=== PATIENT | male | born 1955 | race Caucasian/White ===

== ENCOUNTER 2025-04-25 13:45 | Emergency (ER) | payer MEDICARE, SELFPAY ==
--- NOTE | ~2025-04-25 | CT_ITS ---
CT brain wo con Ordering provider: Nohemi Avery History: 69 years Male with . altered mental status . Comparison: None. Technique: CT of the head without contrast. Radiation reduction technique utilized The dose-length pr oduct was 605.33 mGy-cm. FINDINGS: BRAIN PARENCHYMA AND CSF SPACES: Mild leukoaraiosis and diffuse cortical atrophy. Mild atheromatous d isease. No midline shift, mass effect or hemorrhage. The brain parenchyma and CSF spaces are otherwi se normal. VISUALIZED PARANASAL SINUSES: Well aerated. MASTOIDS: Well aerated. BONES: The bones appear intact. SOFT TISSUES: Visualized nasopharynx is normal. Superficial soft tissues are normal. IMPRESSION: No acute intracranial findings. Reviewed, dictated and finalized at location A.
--- NOTE | ~2025-04-25 | XR_ITS ---
EXAMINATION: XR chest 2V DATE: 04/25/2025 14:55 INDICATION: Altered mental status TECHNIQUE: PA and lateral views of the chest were obtained. COMPARISON: None FINDINGS: Mild cardiac megaly with prominent paracardial fat pad obscuring the apex of the heart, the costophre jackelin angle and anterolateral aspect of the left hemidiaphragm. No focal airspace opacities, pulmonary edema, pleural effusion or pneumothorax. Mild lower thoracic dextroscoliosis with mild spondylosis. IMPRESSION: 1. Cardiomegaly. No other acute cardiopulmonary disease. Reviewed, dictated and finalized at location A.
[2025-04-25 14:19] VITALS: BP 157/86; PULSE 66; RESP 15; TEMP 36.4; O2SAT 100
--- NOTE | 2025-04-25 14:41 | ECG_ITS ---
Test Date: 2025-04-25 17:26:15 Measurements Intervals Campus Rate: 62 P: 9 MT: 166 QRS: -13 QRSD: 76 T: -12 QT: 382 QTc: 388 Interpretive Statements SINUS RHYTHM LOW QRS VOLTAGE IN PRECORDIAL LEADS POSSIBLE ANTERIOR MYOCARDIAL INFARCTION , PROBABLY OLD BORDERLINE ST-T WAVE ABNORMALITY- ANT/INF LEADS BASELINE ARTIFACT- I, II, III, AVR, AVL, AVF, V1-V6 ABNORMAL ECG Electronically Signed On 04-25-2025 19:03:40 CDT by Caleb Miranda D.O.
--- NOTE | 2025-04-25 14:42 | ED.AMS ---
HPI - Altered Mental Status General Chief Complaint: Altered Mental Status Stated Complaint: new change in mental status 24 hours ago Time Seen by Provider: 04/25/25 14:25 Focused HPI: Patient is a 69-year-old male who reports to the ER with a new onset altered mental status. He reports that he was sent to the ER because they had concerns that I was confused. Patient is A&O x4 time of examination. His family member is with him and reports he started on Lyrica yesterday, which was prescribed at the pain clinic. Patient endorses chronic right hip pain and right [place] pain. His family member also reports he sees a neurologist and was put on Zyprexa 4 months ago. Patient moved into [facility] assisted living facility approximately 2 months ago. The nursing facility reports he refused lunch yesterday, which was abnormal for patient. Patient's family member does not know his last known well. GENERAL: Well-appearing, well-nourished, and in no acute distress. HEAD: Normocephalic, atraumatic. CHEST: Clear to auscultation. ?No respiratory distress. HEART: Regular rate and rhythm.? NEURO: ?Alert and oriented x3. Patient screened in triage and initial orders placed.? ?Additional care and disposition to be based upon?diagnostic testing and treatment. Related Data Allergies Allergy/AdvReac Type Severity Reaction Status Date / Time Penicillins Allergy Unknown Rash Verified 04/25/25 14:25 Review of Systems Review of Systems: All systems reviewed & are unremarkable except as noted in HPI and below PMFSH Social History Social History Alcohol intake: current Course Vital Signs Vital signs: Vital Signs Temperature 36.4 C 04/25/25 14:19 Pulse Rate 66 04/25/25 14:19 Respiratory Rate 15 04/25/25 14:19 Blood Pressure 157/86 H 04/25/25 14:19 Pulse Oximetry 100 04/25/25 14:19 Oxygen Delivery Room Air 04/25/25 14:19 Temperature 36.4 C 04/25/25 14:19 Pulse Rate 66 04/25/25 14:19 Respiratory Rate 15 04/25/25 14:19 Blood Pressure 157/86 H 04/25/25 14:19 Pulse Oximetry 100 04/25/25 14:19 Oxygen Delivery Room Air 04/25/25 14:19 MDM - Altered Mental Status Lab Data 04/25/25 17:18 04/25/25 17:18 Labs: Lab Results 04/25/25 04/25/25 Range/Units 17:18 17:34 WBC 13.0 H (4.5-10.0) K/mm3 RBC 4.47 L (4.6-6.20) M/mm3 Hgb 13.7 L (14.0-18.0) g/dL Hct 41.8 L (42.0-52.0) % MCV 93.5 (80-100) fl MCH 30.6 (26-34) pg MCHC 32.8 (32-36) g/dl RDW 12.4 (11.5-14.5) % Plt Count 163 (150-375) k/mm3 MPV 9.3 (7.4-10.4) fl Immature Gran % (Auto) Not Reportable Neut % (Auto) Not Reportable Lymph % (Auto) Not Reportable [place] % (Auto) Not Reportable Eos % (Auto) Not Reportable Baso % (Auto) Not Reportable Lymph # (Auto) Not Reportable [place] # (Auto) Not Reportable Eos # (Auto) Not Reportable Baso # (Auto) Not Reportable Abs Immat Gran (auto) Not Reportable Absolute Neuts (auto) Not Reportable Absolute Nucleated RBC Not Reportable Total Counted 100 Neutrophils % (Manual) 36 L (46-73) % Band Neutrophils % 0 (0-6) % Lymphocytes % (Manual) 61.0 H (18-44) % Monocytes % (Manual) 2 L (3-9) % Basophils % (Manual) 1 (0-1) % Nucleated RBC % Not Reportable Abs Neuts (Manual) 4.68 (1.3-6.7) K/mm3 Abs Lymphs (Manual) 7.93 H (1.1-4.5) K/mm3 Abs Monocytes (Manual) 0.26 (0.1-0.90) K/mm3 Abs Basophils (Manual) 0.13 H (0.0-0.1) K/mm3 Platelet Estimate Adequate (Adequate) Schistocytes None seen PT 12.7 (11.1-14.7) Seconds INR 1.0 APTT 27.1 (22.3-36.8) Seconds Sodium 141 (137-145) mmol/L Potassium 4.5 (3.4-5.0) mmol/L Chloride 104 (98-107) mmol/L Carbon Dioxide 26 (22-30) mmol/L Anion Gap 11 (4-12) mmol/L BUN 23 H (9-20) mg/dL Creatinine 1.20 (0.7-1.3) mg/dL Estim Creat Clear Calc 52 ml/min Estimated GFR 60 (59 - ) Glucose 92 (65-110) mg/dL POC Capillary Glucose 88 (65-105) mg/dl Calcium 9.8 (8.4-10.2) mg/dL Total Bilirubin 0.5 (0.2-1.3) mg/dL AST 27 (17-59) U/L ALT 15 (6-50) U/L Alkaline Phosphatase 57 (38-126) U/L Total Creatine Kinase 55 (55-170) U/L Troponin I < 0.012 (0.000-0.034) ng/mL Total Protein 7.4 (6.3-8.2) g/dL Albumin 4.5 (3.5-5.1) g/dL TSH < 0.015 L (0.465-4.680) uIU/mL Urine Color Yellow (Yellow) Urine Appearance Clear (Clear) Urine pH 5.5 (5.0-9.0) Ur Specific [place] 1.017 (1.001-1.035) Urine Protein Negative (Negative) mg/dL Urine Glucose (UA) Negative (Negative) mg/dL Urine Ketones Negative (Negative) mg/dL Ur Blood (Man) Negative (Negative) Urine Nitrate Negative (Negative) Urine Bilirubin Negative (Negative) Urine Urobilinogen 0.2 (<2.0) mg/dL Leukocyte Esterase Rfl Negative (Negative) SEBASTIAN/UL Discharge Plan Discharge Clinical Impression: Altered mental status Patient Disposition: Elopement After Seen by Prov Patient Language: Hungarian Follow-up/Referrals: PHYSICIAN NOT ON STAFF,NONSTAFF [Primary Care Provider] -
[2025-04-25 17:37] LABS: Glucose Point of Care 88 mg/dl (65-105)
[2025-04-25 17:39] LABS: Hematocrit 41.8 % (42.0-52.0); Hemoglobin 13.7 g/dL (14.0-18.0); Mean Corpuscular HGB Conc 32.8 g/dl (32-36); Mean Corpuscular Hemoglobin 30.6 pg (26-34); Mean Corpuscular Volume 93.5 fl (80-100); Mean Platelet Volume 9.3 fl (7.4-10.4); Platelet Count Result 163 k/mm3 (150-375); Red Blood Count 4.47 M/mm3 (4.6-6.20); Red Cell Distribution Width 12.4 % (11.5-14.5)
[2025-04-25 17:43] LABS: Add Urine Microscopic? NO; Appearance Urine Clear (Clear); Bilirubin Urine Negative (Negative); Blood Urine Negative (Negative); Color Urine Yellow (Yellow); Glucose Urine UA Negative (Negative); Ketones Urine Negative (Negative); Leukocyte Esterase Ur Negative LEU/UL (Negative); Nitrate Urine Negative (Negative); Protein Urine Negative (Negative); Specific Grav Ur 1.017 (1.001-1.035); Urobilinogen Urine 0.2 mg/dL (<2.0); pH Urine 5.5 (5.0-9.0)
[2025-04-25 17:50] LABS: Alanine Aminotransferase 15 U/L (6-50); Albumin Level 4.5 g/dL (3.5-5.1); Alkaline Phosphatase 57 U/L (38-126); Anion Gap 11 mmol/L (4-12); Aspartate Amino Transferase 27 U/L (17-59); Bilirubin,Total 0.5 mg/dL (0.2-1.3); Blood Urea Nitrogen 23 mg/dL (9-20); Calcium 9.8 mg/dL (8.4-10.2); Carbon Dioxide 26 mmol/L (22-30); Chloride 104 mmol/L (98-107); Creatine Kinase 55 U/L (55-170); Estimated CRCL calculation 52 ml/min; Estimated Glomerular Filt Rate 60; Glucose 92 mg/dL (65-110); Potassium 4.5 mmol/L (3.4-5.0); Sodium 141 mmol/L (137-145); Total Protein 7.4 g/dL (6.3-8.2)
[2025-04-25 17:51] LABS: Prothrombin Time 12.7 Seconds (11.1-14.7)
[2025-04-25 17:52] LABS: Partial Thromboplastin Time 27.1 Seconds (22.3-36.8)
[2025-04-25 18:02] LABS: Troponin I < 0.012 ng/mL (0.000-0.034)
[2025-04-25 18:18] LABS: Basophils Absolute Manual 0.13 K/mm3 (0.0-0.1); Basophils Percent Manual 1 % (0-1); Lymphocytes Absolute Manual 7.93 K/mm3 (1.1-4.5); Monocytes Absolute Manual 0.26 K/mm3 (0.1-0.90); Monocytes Percent Manual 2 % (3-9); Neutrophils Percent Manual 36 % (46-73); Platelet Estimate Adequate (Adequate); Schistocytes None Seen; Total Cells Counted 100
[2025-04-25 18:21] LABS: Thyroid Stimulating Hormone < 0.015 uIU/mL (0.465-4.680)
[2025-04-25 18:47] LABS: Band Neutrophils Percent 0 % (0-6); Neutrophils Absolute Manual 4.68 K/mm3 (1.3-6.7)
== END 2025-04-25 19:14 | disposition left against medical advice (07) ==
LOC: ANHED 19:13
PROVIDERS: Registered Nurse; Emergency Provider General Practice
DX: R41.82 Altered mental status, unspecified (principal); M25.551 Pain in right hip; M79.661 Pain in right lower leg; G89.29 Other chronic pain; R94.31 Abnormal electrocardiogram [ECG] [EKG]; Z79.899 Other long term (current) drug therapy
CPT/HCPCS: 36415; 70450; 71046; 80053; 81003; 82550; 82948; 84443; 84484; 85025; 85610; 85730; 93005; 99284